=== PATIENT | male | born 1990 | race Caucasian/White ===

== ENCOUNTER 2017-04-25 13:03 | Emergency (ER) | payer OTHER, SELFPAY | END 2017-04-25 14:45 | disposition home or self-care (01) | LOC: MADERS 13:03 | DX: S02.2XXA Fracture of nasal bones, initial encounter for closed fracture (principal); F17.220 Nicotine dependence, chewing tobacco, uncomplicated; W20.8XXA Other cause of strike by thrown, projected or falling object, initial encounter | CPT/HCPCS: 99283 ==